=== PATIENT | female | born 1985 | race Caucasian/White ===

== ENCOUNTER 2016-05-30 22:49 | Inpatient (IN) | payer BC ==
[~2016-05-30] VITALS: Ht 165.1 cm; Wt 73.9 kg
[2016-05-31 00:15] VITALS: BP 127/88; PULSE 96; TEMP 36.5; Ht 165.1 cm; Wt 73.9 kg
[2016-05-31] MEDS ORDERED: NURSING VERBAL MED ORDER ONE ×2 (00:15→15:15)
[2016-05-31] MEDS ORDERED: ALUMINUM/MAGNESIUM SUSP 30 ML UDC PO PRN (00:45)
[2016-05-31] MEDS ORDERED: MAGNESIUM HYDROXIDE SUSP 30 ML UDC PO PRN (00:45)
[2016-05-31] MEDS ORDERED: PATIENT'S ALLERGY INFO NEEDS ENTERED SCH (00:45)
[2016-05-31] MEDS ORDERED: hydrOXYzine HCL 25 MG TAB PO PRN (00:45)
[2016-05-31] MEDS ORDERED: BISMUTH SUBSALICYLATE PER ML OMNICELL CHARGE PO PRN (00:45)
[2016-05-31] MEDS ORDERED: ACETAMINOPHEN 325 MG TAB PO PRN (00:45)
[2016-05-31] MEDS ORDERED: SODIUM CHLORIDE 0.65% NA SOLN 45 ML (OCEAN) PRN (00:45)
[2016-05-31] MEDS ORDERED: HYDR25CA PO (03:14)
[2016-05-31] MEDS ORDERED: SERT25TA PO (03:14)
[2016-05-31] MEDS ORDERED: LUBI8CAP4 PO (03:14)
[2016-05-31] MEDS ORDERED: DICL-201 PO (03:14)
[2016-05-31] MEDS ORDERED: AMT24 PO (03:14)
[2016-05-31 07:01] VITALS: BP_SYST 101; BP_SYST 111; BP_DIAS 56; BP_DIAS 66; PULSE 84; PULSE 94; TEMP 36.8
[2016-05-31] MEDS: NICOTINE 21 MG/24 HR TDSY EXT SCH (08:52)
[2016-05-31] MEDS ORDERED: SERTRALINE HCL 50 MG TAB PO ONE (13:30)
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
[2016-05-31] MEDS: [UNRECOGNIZED DRUG - REMARK] SCH (16:00)
[2016-05-31] MEDS: NICOTINE POLACRILEX 2 MG GUM MT PRN (17:41)
[2016-05-31] MEDS: DICLOFENAC SOD EC 75 MG TABCR PO SCH (21:25)
[2016-06-01 07:04] VITALS: BP_SYST 106; BP_SYST 114; BP_DIAS 67; BP_DIAS 69; PULSE 86; PULSE 88; TEMP 36.9
[2016-06-01] MEDS: [UNRECOGNIZED DRUG - REMARK] SCH ×3 (08:00→16:00)
[2016-06-01] MEDS: NICOTINE 21 MG/24 HR TDSY EXT SCH (08:05)
[2016-06-01] MEDS: DICLOFENAC SOD EC 75 MG TABCR PO SCH ×2 (08:10→21:29)
[2016-06-01] MEDS ORDERED: SERTRALINE HCL 50 MG TAB PO SCH (09:00)
[2016-06-01] MEDS: NICOTINE POLACRILEX 2 MG GUM MT PRN ×2 (09:14→14:15)
[2016-06-01] MEDS: hydrOXYzine HCL 25 MG TAB PO PRN ×2 (11:12→19:12)
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
[2016-06-02 07:05] VITALS: BP_SYST 120; BP_SYST 96; BP_DIAS 62; BP_DIAS 70; PULSE 85; PULSE 86; TEMP 36.8
[2016-06-02] MEDS: [UNRECOGNIZED DRUG - REMARK] SCH ×2 (08:00→15:33)
[2016-06-02] MEDS ORDERED: SERTRALINE HCL 100 MG TAB PO SCH (09:00)
[2016-06-02] MEDS: NICOTINE 21 MG/24 HR TDSY EXT SCH (09:18)
[2016-06-02] MEDS: DICLOFENAC SOD EC 75 MG TABCR PO SCH (09:18)
[2016-06-02] MEDS: NICOTINE POLACRILEX 2 MG GUM MT PRN (09:44)
[2016-06-02] MEDS ORDERED: SERT-234 PO (10:40)
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
== END 2016-06-02 15:55 | disposition home or self-care (01) | DRG 885 ==
LOC: C.MHU 05-31 00:04
PROVIDERS: ADMIT Psychiatry & Neurology Psychiatry; ATTEND Psychiatry & Neurology Psychiatry
DX: F33.2 Major depressive disorder, recurrent severe without psychotic features (principal); R45.851 Suicidal ideations; F41.9 Anxiety disorder, unspecified; C73 Malignant neoplasm of thyroid gland; K58.9 Irritable bowel syndrome, unspecified; G89.29 Other chronic pain; M54.5 Low back pain; F17.210 Nicotine dependence, cigarettes, uncomplicated; F15.10 Other stimulant abuse, uncomplicated; Z79.899 Other long term (current) drug therapy; Z91.410 Personal history of adult physical and sexual abuse; Z91.411 Personal history of adult psychological abuse; Z81.1 Family history of alcohol abuse and dependence; Z81.8 Family history of other mental and behavioral disorders; Z83.3 Family history of diabetes mellitus; Z82.49 Family history of ischemic heart disease and other diseases of the circulatory system; Z83.49 Family history of other endocrine, nutritional and metabolic diseases